=== PATIENT | male | born 2000 | race Hispanic/Latino ===

== ENCOUNTER 2024-02-15 13:47 | Emergency (ER) | payer OTHER ==
[2024-02-15] MEDS ORDERED: Bacitracin 1 PK ONE (15:22)
[2024-02-15] MEDS ORDERED: Lidocaine 1% w/Epinephrine 1:100K 20 ML VIAL ONE (15:22)
== END 2024-02-15 16:16 | disposition home or self-care (01) ==
LOC: ERS 13:47
DX: S01.81XA Laceration without foreign body of other part of head, initial encounter (principal); W26.9XXA Contact with unspecified sharp object(s), initial encounter; Y92.810 Car as the place of occurrence of the external cause
CPT/HCPCS: 12001; 99282